=== PATIENT | female | born 1945 | race African-American/Black ===

== ENCOUNTER 2016-10-23 18:05 | Observation (INO) | payer MEDICARE, MEDICAID ==
[~2016-10-23 18:05] MED LIST: ASPIR 8181 M1 PO; ATORVASTATIN CA40 M1 PO; BRILINTA90 M1 PO; CLARITIN10 M8 PO; ISOSORBIDE MONO30 M4 PO; LISINOPRIL40 M1 PO; METOPROLOL SUCC50 M1 PO; NEURONTIN100 M1 PO; PROTONIX40 M2 PO; PROVIGIL100 M1 PO; VERAPAMIL ER240 M2 PO; ZETIA10 M1 PO
[2016-10-23 18:06] LABS: BASO % 0.7 % (0-2); EOS % 4.9 % (0-7); EOSINOPHIL ABSOLUTE COUNT 0.1 tho/cmm (0.0-0.7); HCT-HEMATOCRIT 30.6 % (34.0-49.0); HGB-HEMOGLOBIN 9.6 gm/dl (12.0-15.5); LYMPH % 52.5 % (20-45); LYMPH ABSOLUTE COUNT 1.5 tho/cmm (0.8-4.5); MCH (MEAN CORPUSCULAR HGB) 26.4 pg (28.0-32.0); MCHC MEAN CORPUSCULAR HGB CONC 31.4 % (32.0-36.0); MCV (MEAN CELL VOLUME) 84.1 fl (82.0-96.0); MEAN PLATELET VOLUME 9.8 cmc (9.4-12.4); MONO % 8.8 % (0-12); MONOCYTE ABSOLUTE COUNT 0.3 tho/cmm (0.0-1.2); NEUTROPHIL ABSOLUTE COUNT 0.9 tho/cmm (1.6-8.0); NEUTROPHIL-AUTOMATED 0.9 tho/cmm (1.6-8.0); NEUTROPHILS % 33.1 % (40-80); PLATELET COUNT 166 tho/cmm (150-450); RED BLOOD COUNT 3.64 mil/cmm (4.00-5.20); RED CELL DISTRIBUTION WIDTH 14.6 % (12.4-16.4); WHITE BLOOD COUNT 2.8 tho/cmm (4.0-10.0)
[2016-10-23 18:07] LABS: PROTHROMBIN TIME 11.8 SECONDS (9.0-13.6)
[2016-10-23] MEDS ORDERED: PLAVIX75 M1 PO (21:39)
[2016-10-24 05:35] LABS: HCT-HEMATOCRIT 28.5 % (34.0-49.0); HGB-HEMOGLOBIN 8.8 gm/dl (12.0-15.5); MCV (MEAN CELL VOLUME) 83.8 fl (82.0-96.0); RED CELL DISTRIBUTION WIDTH 14.6 % (12.4-16.4)
[2016-10-24 05:53] LABS: ANION GAP 10 mmol/L (0-20); BLOOD UREA NITROGEN 10 mg/dl (6-24); CALCIUM 8.1 mg/dl (8.5-10.5); CARBON DIOXIDE-VENOUS 26 mmol/L (22-32); CHLORIDE 111 mmol/l (96-110); CREATININE 0.76 mg/dl (0.50-1.10); GLUCOSE 108 mg/dL (70-110); POTASSIUM 4.7 mmol/L (3.7-5.1); SODIUM 142 mmol/L (135-145); eGFR VALUE FOR BLACK >90 mL/Min
== END 2016-10-24 12:30 ==
LOC: EDMED 18:05 → EMR2 18:17 → CAR1 18:20
PROVIDERS: Nurse Practitioner Adult Health; ADMIT Internal Medicine Interventional Cardiology
DX: I97.610 Postprocedural hemorrhage of a circulatory system organ or structure following a cardiac catheterization (principal); I25.10 Atherosclerotic heart disease of native coronary artery without angina pectoris; I10 Essential (primary) hypertension; E11.9 Type 2 diabetes mellitus without complications; D62 Acute posthemorrhagic anemia; Z79.02 Long term (current) use of antithrombotics/antiplatelets; Z79.82 Long term (current) use of aspirin; Z79.899 Other long term (current) drug therapy; Z88.1 Allergy status to other antibiotic agents; Z91.040 Latex allergy status; Z90.49 Acquired absence of other specified parts of digestive tract; Z90.710 Acquired absence of both cervix and uterus; Z90.89 Acquired absence of other organs; Z95.5 Presence of coronary angioplasty implant and graft; Z98.890 Other specified postprocedural states
CPT/HCPCS: G0378; J2270

== ENCOUNTER 2017-02-03 17:18 | Observation (INO) | payer MEDICARE, MEDICAID ==
[~2017-02-03 17:18] MED LIST changes: +PLAVIX75 M1 PO
[2017-02-03] MEDS ORDERED: ZYRTEC10 M7 PO (17:37)
[2017-02-03 18:01] LABS: BASO % 0.3 % (0-2); EOS % 3.3 % (0-7); EOSINOPHIL ABSOLUTE COUNT 0.1 tho/cmm (0.0-0.7); HCT-HEMATOCRIT 33.5 % (34.0-49.0); HGB-HEMOGLOBIN 10.8 gm/dl (12.0-15.5); IMMATURE GRANULOCYTES ABSOLUTE 0.01 tho/cmm (0-0.03); IMMATURE GRANULOCYTES PERCENT 0.3 % (0-0.3); LYMPH % 55.6 % (20-45); LYMPH ABSOLUTE COUNT 2.2 tho/cmm (0.8-4.5); MCH (MEAN CORPUSCULAR HGB) 26.5 pg (28.0-32.0); MCHC MEAN CORPUSCULAR HGB CONC 32.2 % (32.0-36.0); MCV (MEAN CELL VOLUME) 82.1 fl (82.0-96.0); MEAN PLATELET VOLUME 9.6 cmc (9.4-12.4); MONO % 8.4 % (0-12); MONOCYTE ABSOLUTE COUNT 0.3 tho/cmm (0.0-1.2); NEUTROPHIL ABSOLUTE COUNT 1.3 tho/cmm (1.6-8.0); NEUTROPHIL-AUTOMATED 1.3 tho/cmm (1.6-8.0); NEUTROPHILS % 32.1 % (40-80); PLATELET COUNT 245 tho/cmm (150-450); RED BLOOD COUNT 4.08 mil/cmm (4.00-5.20); RED CELL DISTRIBUTION WIDTH 15.7 % (12.4-16.4); WHITE BLOOD COUNT 3.9 tho/cmm (4.0-10.0)
[2017-02-03 18:08] LABS: PROTHROMBIN TIME 11.6 SECONDS (9.0-13.6)
[2017-02-03 19:40] LABS: ANION GAP 10 mmol/L (0-20); BLOOD UREA NITROGEN 10 mg/dl (6-24); CALCIUM 8.5 mg/dl (8.5-10.5); CARBON DIOXIDE-VENOUS 25 mmol/L (22-32); CHLORIDE 108 mmol/l (96-110); CREATININE 0.71 mg/dl (0.50-1.10); GLUCOSE 84 mg/dL (70-110); POTASSIUM 4.5 mmol/L (3.7-5.1); SODIUM 138 mmol/L (135-145); eGFR VALUE FOR BLACK >90 mL/Min
[2017-02-05] MEDS ORDERED: NITROGLYCERIN0.4 M2 SL (14:10)
== END 2017-02-05 14:40 ==
LOC: EDMED 17:18 → EMR2 22:43 → PCUA 02-04 00:12
PROVIDERS: Emergency Medicine; ADMIT Internal Medicine
PROC: B2111ZZ Fluoroscopy of Multiple Coronary Arteries using Low Osmolar Contrast (ICD-10-PCS; principal; 2017-02-05)
DX: I25.10 Atherosclerotic heart disease of native coronary artery without angina pectoris (principal); E11.9 Type 2 diabetes mellitus without complications; I10 Essential (primary) hypertension; E78.5 Hyperlipidemia, unspecified; D64.9 Anemia, unspecified; Z79.02 Long term (current) use of antithrombotics/antiplatelets; Z79.82 Long term (current) use of aspirin; Z79.899 Other long term (current) drug therapy; Z88.0 Allergy status to penicillin; Z91.040 Latex allergy status; Z90.49 Acquired absence of other specified parts of digestive tract; Z90.710 Acquired absence of both cervix and uterus; Z90.89 Acquired absence of other organs; Z98.49 Cataract extraction status, unspecified eye; Z98.890 Other specified postprocedural states
CPT/HCPCS: A9500; C8929; G0378; J1644; J2250; J2270; J2785; J3010; Q9967